=== PATIENT | female | born 1955 | race Caucasian/White ===

== ENCOUNTER 2017-01-24 14:34 | Observation (INO) | payer BC ==
[2017-01-24] MEDS ORDERED: PHENERGAN INJ 25 MG IV PRN (15:47)
[2017-01-24] MEDS ORDERED: ZOFRAN INJ 4 MG VIAL IVP PRN (15:47)
[2017-01-24 16:42] LABS: BASOPHILS % (AUTO) 0.3 % (0.2-1.0); EOSINOPHILS % (AUTO) 0.2 % (0.9-2.9); HEMATOCRIT 38.5 % (36.0-47.0); LYMPHOCYTES # (AUTO) 0.4 X10^3/uL (1.3-2.9); LYMPHOCYTES % (AUTO) 4.2 % (21.0-51.0); MEAN CORPUSCULAR HEMOGLOBIN 30.6 pg (27.0-34.0); MEAN CORPUSCULAR HGB CONC 33.8 g/dL (33.0-35.0); MEAN CORPUSCULAR VOLUME 90.4 fL (80.0-100.0); MEAN PLATELET VOLUME 7.4 fL (7.4-11.0); MONOCYTES # (AUTO) 0.3 x10^3/uL (0.3-0.8); MONOCYTES % (AUTO) 3.1 % (0.0-13.0); NEUTROPHILS # (AUTO) 9.5 x10^3/uL (2.2-4.8); NEUTROPHILS % (AUTO) 92.2 % (42.0-75.0); PLATELET COUNT 279 X10^3/uL (150.0-450.0); RED BLOOD COUNT 4.26 X10^6/uL (3.5-5.4); RED CELL DISTRIBUTION WIDTH 13.4 % (11.6-16.5); WHITE BLOOD COUNT 10.3 X10^3/uL (3.6-10.0)
[2017-01-24 16:58] LABS: ALANINE AMINOTRANSFERASE 26 Units/L (12-78); ALBUMIN 3.7 g/dL (3.4-5.0); ALKALINE PHOSPHATASE 53 Units/L (46-116); ASPARTATE AMINO TRANSFERASE 18 Units/L (15-37); BLOOD UREA NITROGEN 12 mg/dL (7-18); CALCIUM 8.5 mg/dL (8.5-10.1); CARBON DIOXIDE 27.9 mmol/L (21-32); CHLORIDE 103 mmol/L (98-107); CKMB % 1.4 % (<4); COR NA(FOR HYPERGLY) 141 mmol/L (136-145); CREATINE KINASE 79 Units/L (26-192); CREATINE KINASE MB 1.1 ng/mL (0-4.0); CREATININE 0.63 mg/dL (0.55-1.02); GLUCOSE 123 mg/dL (65-99); SODIUM 140 mmol/L (136-145); TOTAL PROTEIN 6.9 g/dL (6.4-8.2); TROPONIN I < 0.02 ng/mL (0-1.5); eGFR BLACK RACES > 60 (>60); eGFR NON BLACK RACES > 60 (>60)
[2017-01-24 17:04] LABS: PLATELET MORPHOLOGY COMMENT NORMAL (NORMAL)
[2017-01-24 17:28] VITALS: BMI 23.5
[2017-01-24] MEDS: NS 1000 ML 1,000 ML IV SCH ×2 (18:44→23:26)
[2017-01-24] MEDS: CIPRO IV 400 MG PREMIX* 400 MG/200 ML IV.SOLN. IV SCH (18:44)
--- NOTE | 2017-01-24 18:49 | RAD ---
HISTORY: Shortness of breath and near syncope Study: Portable chest Comparison: April 2015 Findings: The trachea is midline. The cardiac silhouette is unremarkable. The lungs are clear without focal infiltrate or effusion. The bony thorax is unremarkable. IMPRESSION: 1. No acute cardiopulmonary disease. Reported By:
--- NOTE | 2017-01-24 20:07 | VAS ---
HISTORY: Syncope Study: Carotid sonogram Comparison: None Technique: Multiple sharif scale and color flow Doppler images of the right and left carotid arterial system were obtained. The vertebral arterial system was evaluated as well. Findings: Mild plaque is present in the right carotid bulb. Normal color flow Doppler is seen throughout the r ight and left carotid arterial system. No hemodynamically significant stenosis is seen based on maddie ocity criteria. The right and left vertebral arteries demonstrate antegrade flow. IMPRESSION: 1. No hemodynamically significant stenosis. Reported By:
[2017-01-24 20:55] LABS: CKMB % 1.2 % (<4); CREATINE KINASE 84 Units/L (26-192); CREATINE KINASE MB < 1.0 ng/mL (0-4.0); TROPONIN I < 0.02 ng/mL (0-1.5)
[2017-01-24 21:08] LABS: BILIRUBIN,URINE NEGATIVE (NEGATIVE); BLOOD/HEMOGLOBIN,URINE 1+ (NEGATIVE); GLUCOSE, URINE NEGATIVE (NEGATIVE); KETONES,URINE NEGATIVE (NEGATIVE); LEUKOCYTE ESTERASE ,URINE NEGATIVE (NEGATIVE); NITRITES,URINE NEGATIVE (NEGATIVE); PROTEIN,URINE NEGATIVE (NEGATIVE); UROBILINOGEN,URINE NORMAL (NORMAL)
[2017-01-24 21:27] LABS: APPEARANCE,URINE CLEAR (CLEAR); COLOR,URINE YELLOW (YELLOW); RBC,URINE 0-3 /HPF (NEGATIVE)
[2017-01-24 21:28] LABS: AMORPHOUS SEDIMENT,UR TRACE /HPF (NEGATIVE); BACTERIA,URINE TRACE /HPF (NEGATIVE); SQUAMOUS EPITHELIAL CELL,UR NEGATIVE /HPF (NEGATIVE)
[2017-01-25 00:40] LABS: CKMB % 1.7 % (<4); CREATINE KINASE 59 Units/L (26-192); CREATINE KINASE MB < 1.0 ng/mL (0-4.0); TROPONIN I < 0.02 ng/mL (0-1.5)
[2017-01-25] MEDS: NS 1000 ML 1,000 ML IV SCH ×6 (04:17→23:27)
[2017-01-25 05:20] LABS: BASOPHILS % (AUTO) 0.5 % (0.2-1.0); EOSINOPHILS # (AUTO) 0.1 x10^3/uL (0.0-0.2); EOSINOPHILS % (AUTO) 1.3 % (0.9-2.9); HEMATOCRIT 34.1 % (36.0-47.0); HEMOGLOBIN 11.7 g/dL (12.0-16.0); LYMPHOCYTES # (AUTO) 1.2 X10^3/uL (1.3-2.9); LYMPHOCYTES % (AUTO) 20.2 % (21.0-51.0); MEAN CORPUSCULAR HEMOGLOBIN 31.1 pg (27.0-34.0); MEAN CORPUSCULAR HGB CONC 34.2 g/dL (33.0-35.0); MEAN CORPUSCULAR VOLUME 91.1 fL (80.0-100.0); MEAN PLATELET VOLUME 7.6 fL (7.4-11.0); MONOCYTES # (AUTO) 0.5 x10^3/uL (0.3-0.8); MONOCYTES % (AUTO) 7.8 % (0.0-13.0); NEUTROPHILS # (AUTO) 4.2 x10^3/uL (2.2-4.8); NEUTROPHILS % (AUTO) 70.2 % (42.0-75.0); PLATELET COUNT 255 X10^3/uL (150.0-450.0); RED BLOOD COUNT 3.74 X10^6/uL (3.5-5.4); RED CELL DISTRIBUTION WIDTH 13.4 % (11.6-16.5); WHITE BLOOD COUNT 6.1 X10^3/uL (3.6-10.0)
[2017-01-25 05:26] LABS: ALANINE AMINOTRANSFERASE 24 Units/L (12-78); ALBUMIN 2.9 g/dL (3.4-5.0); ALKALINE PHOSPHATASE 44 Units/L (46-116); ASPARTATE AMINO TRANSFERASE 18 Units/L (15-37); BLOOD UREA NITROGEN 9 mg/dL (7-18); CALCIUM 7.9 mg/dL (8.5-10.1); CARBON DIOXIDE 28.4 mmol/L (21-32); CHLORIDE 105 mmol/L (98-107); COR CA(FOR HYPOALB) 8.8 mg/dL (8.5-10.1); CREATININE 0.66 mg/dL (0.55-1.02); GLUCOSE 91 mg/dL (65-99); SODIUM 142 mmol/L (136-145); TOTAL PROTEIN 5.9 g/dL (6.4-8.2); eGFR BLACK RACES > 60 (>60); eGFR NON BLACK RACES > 60 (>60)
[2017-01-25] MEDS ORDERED: K-RIDER 10 MEQ/NS 100 ML 10 MEQ/100 ML BAG IV PRN (05:38)
[2017-01-25] MEDS ORDERED: K-DUR TAB 20 MEQ PO PRN (05:38)
[2017-01-25] MEDS ORDERED: POTASSIUM CHLORIDE LIQ 20 MEQ UDC PO PRN (05:38)
[2017-01-25] MEDS ORDERED: K-LYTE EFFERVESCENT PO PRN (05:38)
[2017-01-25] MEDS: CIPRO IV 400 MG PREMIX* 400 MG/200 ML IV.SOLN. IV SCH ×2 (09:19→21:37)
[2017-01-25] MEDS: FLONASE NASAL SPRAY ENOSTRIL SCH (10:39)
[2017-01-25] MEDS ORDERED: ZOCOR TAB 20 MG PO SCH (21:00)
[2017-01-26 05:20] LABS: ALANINE AMINOTRANSFERASE 26 Units/L (12-78); ALBUMIN 2.8 g/dL (3.4-5.0); ALKALINE PHOSPHATASE 44 Units/L (46-116); ASPARTATE AMINO TRANSFERASE 22 Units/L (15-37); BLOOD UREA NITROGEN 6 mg/dL (7-18); CALCIUM 7.5 mg/dL (8.5-10.1); CARBON DIOXIDE 25.5 mmol/L (21-32); CHLORIDE 107 mmol/L (98-107); COR CA(FOR HYPOALB) 8.5 mg/dL (8.5-10.1); CREATININE 0.53 mg/dL (0.55-1.02); GLUCOSE 85 mg/dL (65-99); SODIUM 143 mmol/L (136-145); TOTAL PROTEIN 5.8 g/dL (6.4-8.2); eGFR BLACK RACES > 60 (>60); eGFR NON BLACK RACES > 60 (>60)
[2017-01-26 06:18] LABS: BASOPHILS % (AUTO) 0.6 % (0.2-1.0); EOSINOPHILS # (AUTO) 0.1 x10^3/uL (0.0-0.2); HEMATOCRIT 33.2 % (36.0-47.0); HEMOGLOBIN 11.3 g/dL (12.0-16.0); LYMPHOCYTES # (AUTO) 1.5 X10^3/uL (1.3-2.9); MEAN CORPUSCULAR VOLUME 91.2 fL (80.0-100.0); MEAN PLATELET VOLUME 7.8 fL (7.4-11.0); MONOCYTES # (AUTO) 0.7 x10^3/uL (0.3-0.8); MONOCYTES % (AUTO) 10.2 % (0.0-13.0); NEUTROPHILS # (AUTO) 4.8 x10^3/uL (2.2-4.8); NEUTROPHILS % (AUTO) 66.2 % (42.0-75.0); PLATELET COUNT 250 X10^3/uL (150.0-450.0); RED BLOOD COUNT 3.63 X10^6/uL (3.5-5.4); RED CELL DISTRIBUTION WIDTH 13.7 % (11.6-16.5); WHITE BLOOD COUNT 7.2 X10^3/uL (3.6-10.0)
[2017-01-26] MEDS: CIPRO IV 400 MG PREMIX* 400 MG/200 ML IV.SOLN. IV SCH (08:43)
[2017-01-26] MEDS: NS 1000 ML 1,000 ML IV SCH ×2 (08:44→15:18)
[2017-01-26] MEDS: FLONASE NASAL SPRAY ENOSTRIL SCH (08:44)
--- NOTE | 2017-01-26 13:32 | DR.UPDATE ---
H&P Update History and Physical Update: HISTORY AND PHYSICAL UPDATE FOR ADMISSION 01/24/17 MS. MORALES'S H&P WAS COMPLETED IN OUR OFFICE PRIOR TO ADMISSION. SHE HAS BEEN SEEN AND EXAMINED WITH NO CHANGES NOTED.
--- NOTE | 2017-01-26 13:38 | PCM.PROG ---
Progress Note - Progress Note for Day of Date: 01/25/17 - Subjective Subjective: PATIENT CONTINUES TO REPORTS INTERMITTENT NAUSEA. SHE REPORTS DIZZINESS ALSO CONTINUES. NO FURTHER SYNCOPAL EPISODES ARE NOTED. PATIENT REPORTS NO APPETITE THIS MORNING. CBC WNL EXCEPT: H/H 11.7/34.1. CMP WNL EXCEPT: POTASSIUM 2.7, CALCIUM 7.9, TOT PROTEIN 5.9, ALBUMIN 2.9. CARDIAC ENZYMES WNL. EKG: SINUS RHYTHM, RATE 75. CAROTID DOPPLER REPORTS NO HEMODYNAMICALLY SIGNIFICANT STENOSIS. PATIENT IS SCHEDULED FOR AN ECHO TOMORROW. WE WILL START A CLEAR LIQUID DIET TODAY, CONTINUE CURRENT TREATMENT, AND CONTINUE TO MONITOR ON TELEMETRY. WE WILL FOLLOW UP IN AM WITH LABS AND PLAN FOR DISCHARGE TOMORROW. - Past Medical Family Social History Past Med/Fam/Surg Hx: No changes since H&P Allergies: Allergies No Known Drug Allergy Allergy (Verified 08/27/15 14:45) - Review of Systems ROS: No change since H&P - Vital Signs and I&O's Vital Signs: Temperature 98.8 F Pulse Rate [Left Brachial] 90 Respiratory Rate 20 Blood Pressure [Left Arm] 130/61 Blood Pressure 109/71 O2 Sat by Pulse Oximetry 94 Intake and Output: Intake & Output 01/24/17 01/25/17 01/26/17 01/27/17 11:59 11:59 11:59 11:59 Intake Total 1000 2530 Output Total 500 Balance 500 2530 - Physical Exam Oriented: Normal, Time, Person, Place Eyes: Normal. negative: Blurred Vision, Diplopia, Discharge, Pain, Redness, Photophobia Ear: Normal. negative: Swelling, Ecchymosis, Hemotypanum, Abrasion, Laceration Nose: Normal. negative: Injected, Discharge, Blood Throat: Normal. negative: Tonsillar Hypertrophy, Red, Exudate Respiratory: Normal Cardiovascular: Normal. negative: Murmur, Edema : Normal. negative: Dysuria, Hematuria, Frequency, Discharge, Bleeding, Auscultation: Bowel Sounds: Decreased. negative: Bruit Palpation: Normal. negative: Spleen Enlarged, Liver Enlarged, Mass Pulsatile Tenderness: Normal. negative: Rebound, Guarding, Rigidity Skin: Decreased Turgur. negative: Diaphoresis, Wound, Bruising, Ecchymosis Musculoskeletal: Normal Psychiatric: Normal Mood Description: Calm, Appropriate Affect: Normal Speech Pattern: Clear, Appropriate - Laboratory and Diagnostics Result Diagrams: 01/26/17 04:10 01/26/17 04:10 Labs: 01/24/17 17:10 Blood Blood Culture - Preliminary 01/24/17 16:25 Blood Blood Culture - Preliminary Laboratory WBC 7.2 X10^3/uL (3.6-10.0) 01/26/17 04:10 RBC 3.63 X10^6/uL (3.5-5.4) 01/26/17 04:10 Hgb 11.3 g/dL (12.0-16.0) L 01/26/17 04:10 Hct 33.2 % (36.0-47.0) L 01/26/17 04:10 MCV 91.2 fL (80.0-100.0) 01/26/17 04:10 MCH 31.0 pg (27.0-34.0) 01/26/17 04:10 MCHC 34.0 g/dL (33.0-35.0) 01/26/17 04:10 RDW 13.7 % (11.6-16.5) 01/26/17 04:10 Plt Count 250 X10^3/uL (150.0-450.0) 01/26/17 04:10 Plt Count Comment Adequate (ADEQUATE) 01/24/17 16:25 MPV 7.8 fL (7.4-11.0) 01/26/17 04:10 Neut % 66.2 % (42.0-75.0) 01/26/17 04:10 Lymph % 21.0 % (21.0-51.0) 01/26/17 04:10 [place] % 10.2 % (0.0-13.0) 01/26/17 04:10 Eos % 2.0 % (0.9-2.9) 01/26/17 04:10 Baso % 0.6 % (0.2-1.0) 01/26/17 04:10 Neut # 4.8 x10^3/uL (2.2-4.8) 01/26/17 04:10 Lymph # 1.5 X10^3/uL (1.3-2.9) 01/26/17 04:10 [place] # 0.7 x10^3/uL (0.3-0.8) 01/26/17 04:10 Eos # 0.1 x10^3/uL (0.0-0.2) 01/26/17 04:10 Baso # 0.0 X10^3/uL (0.0-0.1) 01/26/17 04:10 Absolute Nucleated RBC 0.1 /100WBC 01/26/17 04:10 Total Counted 100 01/24/17 16:25 Neutrophils % (Manual) 92 % (39-76) H 01/24/17 16:25 Lymphocytes % (Manual) 5 % (13-43) L 01/24/17 16:25 Monocytes % (Manual) 3 % (4-9) L 01/24/17 16:25 Plt Morphology Comment Normal (NORMAL) 01/24/17 16:25 RBC Morphology Normal (NORMAL) 01/24/17 16:25 Sodium 143 mmol/L (136-145) 01/26/17 04:10 Corrected Sodium TNP 01/26/17 04:10 Potassium 3.3 mmol/L (3.5-5.1) L 01/26/17 04:10 Chloride 107 mmol/L (98-107) 01/26/17 04:10 Carbon Dioxide 25.5 mmol/L (21-32) 01/26/17 04:10 BUN 6 mg/dL (7-18) L 01/26/17 04:10 Creatinine 0.53 mg/dL (0.55-1.02) L 01/26/17 04:10 Est GFR (MDRD) Af Amer > 60 (>60) 01/26/17 04:10 Est GFR (MDRD) Non-Af > 60 (>60) 01/26/17 04:10 Glucose 85 mg/dL (65-99) 01/26/17 04:10 Calcium 7.5 mg/dL (8.5-10.1) L 01/26/17 04:10 Corrected Calcium 8.5 mg/dL (8.5-10.1) 01/26/17 04:10 Magnesium 1.8 mg/dL (1.7-2.9) 01/26/17 04:10 Total Bilirubin 0.40 mg/dL (0.2-1.0) 01/26/17 04:10 AST 22 Units/L (15-37) 01/26/17 04:10 ALT 26 Units/L (12-78) 01/26/17 04:10 Alkaline Phosphatase 44 Units/L (46-116) L 01/26/17 04:10 Creatine Kinase 59 Units/L (26-192) 01/24/17 23:55 CK-MB (CK-2) < 1.0 ng/mL (0-4.0) 01/24/17 23:55 CK/CKMB % Calc 1.7 % (<4) 01/24/17 23:55 Troponin I < 0.02 ng/mL (0-1.5) 01/24/17 23:55 Total Protein 5.8 g/dL (6.4-8.2) L 01/26/17 04:10 Albumin 2.8 g/dL (3.4-5.0) L 01/26/17 04:10 Globulin 3.0 g/dL (2.5-4.5) 01/26/17 04:10 Albumin/Globulin Ratio 0.9 Ratio (1.1-2.1) L 01/26/17 04:10 Specimen Type Clean catch urine 01/24/17 20:52 Urine Color Yellow (YELLOW) 01/24/17 20:52 Urine Appearance Clear (CLEAR) 01/24/17 20:52 Urine pH 7.0 (5.0 - 8.0) 01/24/17 20:52 Ur Specific [place] 1.010 (1.000-1.030) 01/24/17 20:52 Urine Protein Negative (NEGATIVE) 01/24/17 20:52 Urine Glucose (UA) Negative (NEGATIVE) 01/24/17 20:52 Urine Ketones Negative (NEGATIVE) 01/24/17 20:52 Urine Occult Blood 1+ (NEGATIVE) 01/24/17 20:52 Urine Nitrite Negative (NEGATIVE) 01/24/17 20:52 Urine Bilirubin Negative (NEGATIVE) 01/24/17 20:52 Urine Urobilinogen Normal (NORMAL) 01/24/17 20:52 Ur Leukocyte Esterase Negative (NEGATIVE) 01/24/17 20:52 Urine RBC 0-3 /HPF (NEGATIVE) 01/24/17 20:52 Urine WBC None seen /HPF (NEGATIVE) 01/24/17 20:52 Ur Squamous Epith Cells Negative /HPF (NEGATIVE) 01/24/17 20:52 Amorphous Sediment Trace /HPF (NEGATIVE) 01/24/17 20:52 Urine Bacteria Trace /HPF (NEGATIVE) 01/24/17 20:52 Ur Culture Indicated? No/not indicated 01/24/17 20:52 - Plan (1) Syncope Status: Acute Qualifiers: Syncope type: unspecified Encounter type: E Qualified Code(s): R55 - Syncope and collapse Plan: CONTINUE IV FLUIDS, CONTINUE TO MONITOR ON TELEMETRY, ECHO IN AM. (2) Nausea and vomiting Status: Acute Qualifiers: Vomiting type: cyclical vomiting Vomiting Intractability: non-intractable Qualified Code(s): G43.A0 - Cyclical vomiting, not intractable Plan: CONTINUE IV FLUIDS, ANTIEMETICS, MONITOR. (3) Dehydration Status: Acute Plan: ABOVE. (4) Hyperlipidemia Status: Chronic Qualifiers: Hyperlipidemia type: mixed hyperlipidemia Qualified Code(s): E78.2 - Mixed hyperlipidemia (5) Hypertension Status: Chronic Qualifiers: Hypertension type: essential hypertension Qualified Code(s): I10 - Essential (primary) hypertension
[2017-01-26 21:51] VITALS: BP 175/79
== END 2017-01-26 20:05 | disposition home or self-care (01) ==
LOC: MED/SURG 14:34 → UNDOADMOB 14:34 → MED/SURG 15:00
PROVIDERS: ADMIT Internal Medicine; ATTEND Internal Medicine
DX: R55 Syncope and collapse (principal); R11.2 Nausea with vomiting, unspecified; E86.0 Dehydration; H65.06 Acute serous otitis media, recurrent, bilateral; J01.80 Other acute sinusitis; R53.1 Weakness; I10 Essential (primary) hypertension; E78.2 Mixed hyperlipidemia; E87.6 Hypokalemia
CPT/HCPCS: 36415; 71010; 80053; 81001; 82550; 82553; 83735; 84132; 84484; 85025; 87040; 93005; 93306; 93880; 94760; A4216; A4222; G0378; J0744; J2405

== ENCOUNTER → 2017-08-09 | Outpatient (CLI) | payer BC ==
[~2017-08-09] MED LIST: NS 100 ML IV 100 ML IV ONE
[2017-08-09 11:01] LABS: CREATININE 0.76 mg/dL (0.55-1.02)
--- NOTE | 2017-08-09 14:56 | CT ---
HISTORY: Left lower quadrant and right upper quadrant pain. Study: CT abdomen and pelvis with contrast Comparison: None available. Technique: Multiple axial images of the abdomen and pelvis were obtained from the lung bases to the pubic symphy sis after the administration of IV contrast. Dose reduction techniques including Automated Exposure Control (AEC) and adjustment of mA and kV were utilized. Findings: The visualized portions of the lung bases are unremarkable. The liver, spleen, pancreas, kidneys, an d adrenal glands are unremarkable in their CT appearance. The gallbladder is unremarkable in its CT a ppearance. No significant mesenteric lymphadenopathy or stranding can be observed. No free fluid or free air is seen within the abdomen. Scattered colonic diverticula without evidence of diverticulit is. The large and small bowel otherwise appear normal. The appendix is normal. The uterus and ovarie s appear normal for age. The urinary bladder is grossly unremarkable. Suggestion of pectus excavatum deformity. Degenerative changes of the spine. No aggressive osseous lesions. IMPRESSION: 1. No CT evidence of acute abdominal/pelvic pathology. 2. Other chronic findings as above. Reported By:
== END ==
LOC: RAD 10:29
PROVIDERS: ATTEND Internal Medicine
DX: R10.32 Left lower quadrant pain (principal); R10.11 Right upper quadrant pain
CPT/HCPCS: 36415; 74177; 82565; 84520; A4222